=== PATIENT | female | born 1990 | race Caucasian/White ===

== ENCOUNTER 2019-09-30 17:57 | Day surgery (SDC) ==
[2019-09-30 18:33] LABS: URINE SOURCE CLEAN CATCH
[2019-09-30 18:35] LABS: BILIRUBIN URINE NEGATIVE (NEGATIVE); BLOOD URINE NEGATIVE (NEGATIVE); COLOR YELLOW; GLUCOSE URINE NEGATIVE (NEGATIVE); KETONE URINE TRACE mg/dL (NEGATIVE); LEUKOCYTES URINE NEGATIVE (NEGATIVE); NITRITE URINE NEGATIVE (NEGATIVE); PH URINE 5.5; PROTEIN URINE NEGATIVE (NEGATIVE); TURBIDITY URINE CLEAR (CLEAR); UR EPITHELIAL CELLS <10 /HPF (<10); URINE BACTERIA NEGATIVE /HPF; URINE RBC <10 /HPF (<10); URINE WBC <10 /HPF (<10); UROBILINOGEN URINE NORMAL (NORMAL)
[2019-09-30] MEDS ORDERED: NS 1,000 ML IV ONE ×2 (19:17→21:17)
[2019-09-30] MEDS ORDERED: ZOFRAN IV ONE (19:17)
[2019-09-30] MEDS ORDERED: MORPHINE IV ONE ×2 (19:17→21:17)
[2019-09-30] MEDS ORDERED: TORADOL IV ONE (19:17)
[2019-09-30 19:43] LABS: BASO# 0.02 X1000 (0.0-0.2); BASO% 0.1 % (0.0-0.8); EOS# 0.18 X1000 (0.0-0.7); EOS% 1.3 % (0.0-10.0); HEMATOCRIT 40.4 % (37.0-47.0); HEMOGLOBIN 13.6 g/dL (12.0-16.0); IMM GRAN# 0.03 X1000 (0.0-0.04); IMM GRAN% 0.2 % (0.0-0.5); LYMPH# 2.47 X1000 (1.2-3.4); LYMPH% 17.7 % (20.5-51.1); MCH 29.2 PG (27-31); MCHC 33.7 g/dL (33-37); MCV 86.9 FL (81-99); MONO# 0.63 X1000 (0.11-0.59); MONO% 4.5 % (1.7-9.3); MPV 9.8 FL (7.4-10.4); NEUT# 10.65 X1000 (1.4-6.5); NEUT% 76.2 % (42.2-75.2); PLT 321 X1000 (130-400); RBC 4.65 XMIL (4.2-5.4); RDW 11.6 % (11.5-14.5); WBC 13.98 X1000 (4.8-10.8)
[2019-09-30 20:04] LABS: AGAP 14; ALBUMIN 4.4 g/dL (3.5-5.0); ALKALINE PHOSPHATASE 64 U/L (32-104); BUN 11 mg/dL (8-22); CALCIUM 9.4 mg/dL (8.8-10.2); CHLORIDE 101 mmol/L (98-107); COSMO 277; CREATININE 0.7 mg/dL (0.5-0.9); ESTIMATED GFR > 60; GLUCOSE 91 mg/dL (70-104); GOT 13 U/L (10-30); GPT 12 U/L (10-36); LIPASE 24 U/L (13-60); POTASSIUM 3.6 mmol/L (3.5-5.1); SODIUM 139 mmol/L (136-145); TCO2 24 mmol/L (25-35); TOTAL PROTEIN 7.7 g/dL (6.3-8.3)
--- NOTE | 2019-09-30 21:11 | Diag Imaging Result Doc PS360 ---
CT ABD/PELVIS W/IV CONT ONLY - 09/30/2019 INDICATION: RLQ pain, r/o appy COMPARISON: None FINDINGS: The vermiform appendix is very enlarged measuring over 13 mm. No bowel obstruction or free air. Trace pelvic free fluid. Urinary bladder, uterus, ovaries, and rectum are normal. The liver, gallbladder, spleen, pancreas, adrenals, and kidneys are normal. The lung bases are clear and the heart size is normal. Bones are intact. IMPRESSION: Acute appendicitis. This report was discussed with Dr. Villalobos on 09/30/2019 at 9:07 PM and was readback. This exam was performed using automated exposure control, adjustment of mA or kV according to patient size, and/or use of iterative reconstruction technique Electronically signed by Óscar Wiggins 09/30/2019 9:09 PM
[2019-09-30] MEDS ORDERED: INVANZ 1 GM/NS 1 GM/50 ML IVPB IV SCH (21:15)
[2019-09-30] MEDS ORDERED: INVANZ ONE (21:17)
[2019-09-30] MEDS ORDERED: NS 50 ML ONE (21:18)
[2019-09-30] MEDS ORDERED: ZOFRAN IV PRN (21:19)
[2019-09-30] MEDS ORDERED: TORADOL IV PRN (21:19)
--- NOTE | 2019-09-30 21:19 | PROVIDER DOCUMENTATION ---
This chart was entered by Carolin Dougherty Scribe, acting as scribe for Olvin Villalobos MD. HPI-Abdominal Pain/GI Problem - General Chief Complaint: Abdominal Pain Stated Complaint: ABD PAIN Time Seen by Provider: 09/30/19 19:06 Source: RN/ Allergies/Adverse Reactions: Patient Allergies Allergy/AdvReac Type Severity Reaction Status Date / Time Penicillins AdvReac ITCHING Verified 09/30/19 18:55 Sulfa (Sulfonamide AdvReac NAUSEA Verified 09/30/19 18:55 Antibiotics) Home Medications: Home Medication List Medication Instructions Recorded Confirmed Last Taken Type Bupropion [Wellbutrin] 75 mg PO DAILY 09/30/19 09/30/19 Unknown History - History of Present Illness-ABD Nature of Presenting Problems: pt is a 29 yof c/o abd pain starting above umbilicus and radiating to lower abd starting yesterday w/associated nausea, dysuria and diaphoresis. pain is waxing and waning. worsens when eating, breathing and hitting bumps in car. pt LMP was 1-5-20. last BM was today. pt's pain is relieved by laying on left side. Abdominal Pain Onset Location: reports: other (above umbilicus) Pain Radiation: reports: RLQ, LLQ Severity in ED: reports: mild Onset/Duration: reports: other (yesterday) Timing: reports: intermittent Activities at Onset: reports: none Modifying Factors: improves with: breathing (worsens), eating (worsens), lying down (on left side improves), movement (in vheicle hitting bumps worsens) Associated Symptoms: reports: diaphoresis, genitourinary problems (dysuria), nausea Last BM: other (today) Dark Stools Present?: reports: none noticed Rectal Bleeding: reports: none Rectal Pain: reports: none Emesis Description: reports: none Similar Symptoms Previously?: No (pt sts has never had pain before ) Review of Systems - Adult - REVIEW OF SYSTEMS - ADULT Constitutional: reports: no symptoms reported. denies: fever, fatique, night sweats Eyes: reports: no symptoms reported Ears, Nose, Mouth & Throat: reports: no symptoms reported Cardiovascular: reports: no symptoms reported Respiratory: reports: no symptoms reported Gastrointestinal: reports: see HPI, abdominal pain, nausea. denies: diarrhea, rectal bleeding, vomiting Genitourinary: reports: see HPI, dysuria. denies: incontinence, urinary retention, urgency Musculoskeletal: reports: no symptoms reported Integumentary: reports: no symptoms reported Neurological: reports: no symptoms reported Psychiatric: reports: no symptoms reported Endocrine: reports: see HPI, excessive sweating. denies: change in skin pigment, goiter, polyuria Hematologic/Lymphatic: reports: no symptoms reported Allergic/Immunologic: reports: no symptoms reported All Other Systems: Reviewed and Negative Past History - Adult - PAST MEDICAL HISTORY-ADULT Review of Records: reports: Nursing Assessment Review, Medications Reviewed, Social history reviewed & non-contributory. Major Childhood Illnesses: reports: denies history Cardiovascular: reports: denies history Respiratory: reports: denies history Gastrointestinal: reports: denies history Obstetrical/Gynecological: reports: denies history Genitourinary: reports: denies history Musculoskeletal: reports: denies history Neurological: reports: denies history Endocrine/Immune: reports: denies history Other Conditions: reports: denies history - PRIOR SURGERIES/PROCEDURES Surgical/Procedure History: reports: none - IMMUNIZATION STATUS Childhood Immunizations: See Nurse Assessment Flu Vaccine: See Nurse Assessment - FAMILY HISTORY Family History: reviewed, not pertinent - SOCIAL HISTORY Smoking: cigarettes, greater than 1 pack/day, other (vapes) Provider spent 3-5 mins advising pt. on dangers of tobacco.: Discussed manners to quit use, and f/u contacts for add'l counseling. Substance Use: none/never Physical Exam-General - PHYSICAL EXAM-ADULT Initial Vital Signs Reviewed: Yes - CONSTITUTIONAL General Appearance: alert, no apparent distress. negative: lethargic, slow to respond, obtunded - EYES Eyes: PERRL/EOMI - HEAD, EARS, NOSE, MOUTH & THROAT HENMT: normocephalic/atraumatic, moist mucous membranes - NECK Neck: non-tender, full range of motion, supple, normal inspection - RESPIRATORY Respiratory: chest non-tender, lungs clear, normal breath sounds - CARDIOVASCULAR Cardiovascular: normal peripheral pulses, regular rate, rhythm - GASTROINTESTINAL (ABDOMEN) Abdominal Exam: normal bowel sounds, soft, no organomegaly, no pulsatile mass, guarding (involuntary), tenderness (bilat lower abd pain worse at mcburney's point), McBurney's point tenderness, obturator sign, Rovsing's sign. negative: non tender, abnormal bowel sounds, distended, rebound, psoas sign - MUSCULOSKELETAL Back Exam: normal inspection Extremity: normal range of motion, non-tender, normal inspection Peripheral Pulses: radial (R): 2+, radial (L): 2+ - SKIN Integumentary: normal color, normal turgor, diaphoresis. negative: warm/dry, pallor, swelling, tenderness - NEUROLOGIC Neurologic: grossly normal, no motor/sensory deficits - PSYCHIATRIC Psych/Mental Status: normal mood/affect, normal thought content, normal thought process, oriented x 3 Progress - PLAN OF CARE/RESULTS Progress/Plan/Lab Results: Vital Signs - 8 hr 09/30/19 18:19 Temperature 98 F Pulse Rate 114 H Respiratory Rate 18 Blood Pressure 155/106 O2 Sat by Pulse Oximetry 97 Bedside Urine ED: Urine Bedside Start: 09/30/19 18:24 Freq: ORDERED Status: Active Protocol: Activity Type Activity Date Activity User E-Sign Co-Sign Detail Recorded Client Recorded Date Recorded By Document 09/30/19 18:28 [id number] 09/30/19 18:28 [id number] 09/30/19 18:28 Point of Care [Bedside Point of Care] -Lot # [id number] - Results Negative -Control Line Visible? Yes Laboratory Results - last 24 hr 09/30/19 18:23 Urine Source CLEAN CATCH Urine Color YELLOW Urine Turbidity CLEAR Urine pH 5.5 Ur Specific Davison 1.020 Urine Protein NEGATIVE Ur Glucose (Stick) NEGATIVE Ur Ketones (Stick) TRACE A Urine Blood NEGATIVE Urine Nitrite NEGATIVE Urine Bilirubin NEGATIVE Urobilinogen Dipstick NORMAL Urine Leukocytes NEGATIVE Urine WBC (Auto) <10 Urine RBC (Auto) <10 U Epithel Cells (Auto) <10 Urine Bacteria (Auto) NEGATIVE Orders Category Date Time Status ED: Urine Bedside ORDERED Care 09/30/19 18:24 Active NPO Diet 09/30/19 18:56 Active CBC WITH DIFF [HEME] Stat Lab 09/30/19 18:56 Uncollected COMPREHENSIVE METABOLIC PANEL [CHEM] Stat Lab 09/30/19 18:56 Uncollected LIPASE [CHEM] Stat Lab 09/30/19 18:56 Uncollected URINALYSIS W/POSS RFLX CULT [URINALYSIS] Stat Lab 01/26/20 18:23 Completed Abd Pain/OB <20 weeks Stat Oth 09/30/19 18:56 Ordered Result Diagrams: 09/30/19 19:29 09/30/19 19:29 - REASSESSMENT Reassessment #1 Time Reassessed: 21:18 Status: improving (better with meds.) - CT/MRI 1 CT Study: Abdomen, Pelvis Impression: Abnormal, See EMR Report ( CT ABD/PELVIS W/IV CONT ONLY - 09/30/2019 INDICATION: RLQ pain, r/o appy COMPARISON: None FINDINGS: The vermiform appendix is very enlarged measuring over 13 mm. No bowel obstruction or free air. Trace pelvic free fluid. Urinary bladder, uterus, ovaries, and rectum are normal. The liver, gallbladder, spleen, pancreas, adrenals, and kidneys are normal. The lung bases are clear and the heart size is normal. Bones are intact. IMPRESSION: Acute appendicitis. This report was discussed with Dr. Villalobos on 09/30/2019 at 9:07 PM and was readback. This exam was performed using automated exposure control, adjustment of mA or kV according to patient size, and/or use of iterative reconstruction technique Electronically signed by Óscar Wiggins 09/30/2019 9:09 PM) Comparison with other Films: no prior study - CONSULTS/PCP/HOSPITALIST Notification #1 *Consult/PCP/Hospitalist*: Juanita Time Discussed: 21:13 Consult Disposition: Admit Departure - Departure Date of Disposition Decision: 09/30/19 Time of Disposition Decision: 21:18 DIAGNOSIS: Acute appendicitis Qualifiers: Acute appendicitis type: with localized peritonitis Appendicitis gangrene presence: without gangrene Appendicitis perforation presence: without perforation Appendicitis abscess presence: without abscess Qualified Code(s): K35.30 - Acute appendicitis with localized peritonitis, without perforation or gangrene Disposition: ADMITTED INPATIENT 09 Certified Medical Emergency: Emergent Condition: Stable Referrals and Follow-Ups: None,PCP [Primary Care Provider] - - Critical Care Note This patient required my direct & personal management of CC.: No Attestation - Physician/ OMERO Attestation Patient care was provided by Advanced Practice Provider:: No The physician spent face to face time with patient:: Yes Advanced Practice Provider documentation review:: Supervising physician onsite and consulted in the evaluation and care of this patient. The physician did have a face to face encounter with the patient. This chart was documented by the indicated scribe, (Carolin Dougherty, Abdi) and accurately reflects the services I performed and decisions made by me, Olvin Villalobos MD, as attested by the provider's signature.
[2019-09-30] MEDS ORDERED: FENTANYL ONE (22:03)
[2019-09-30] MEDS ORDERED: DIPRIVAN 1% ONE (22:03)
[2019-09-30] MEDS ORDERED: VERSED ONE (22:03)
[2019-09-30] MEDS ORDERED: LR 1,000 ML ONE (22:04)
[2019-09-30] MEDS ORDERED: MARCAINE 0.25% ONE (22:04)
[2019-10-01] MEDS: MORPHINE IV PRN ×2 (00:51→02:55)
--- NOTE | 2019-10-01 01:40 | HISTORY AND PHYSICAL ---
HISTORY OF PRESENT ILLNESS: Ms Marie West is a 29-year-old white female who has a 12 to 24 hour history of abdominal pain which became worse today and has localized toward the right lower quadrant. She presented to [facility] emergency department and was evaluated including a CT scan of her abdomen and pelvis which suggested acute appendicitis as did her exam, and she was transferred to [facility] for surgical care. PAST MEDICAL HISTORY: None. MEDICATIONS: Wellbutrin. ALLERGIES: Sulfa and penicillin. SOCIAL HISTORY: She smokes a pack of cigarettes a day and vapes. Evidently she gets some of her care at the [facility]. She has recently moved to this area. REVIEW OF SYSTEMS: A 14-point review of systems was performed. Her last menstrual period was on 09/09/2019, otherwise it was negative. FAMILY HISTORY: Was reviewed with the patient and was noncontributory. PHYSICAL EXAMINATION: GENERAL: Ms. West is a young white female in no acute distress. She is 5 feet 6 inches, 160 pounds. VITAL SIGNS: Heart rate is 71, blood pressure is 121/83, O2 saturation is 98%. She is afebrile. HEENT: She has no jaundice. No oral lesions. Satisfactory dentition. NECK: No cervical or supraclavicular lymphadenopathy. HEART: Has a regular rate. LUNGS: Clear to auscultation and percussion bilaterally. ABDOMEN: Soft. It is tender in the right lower quadrant. There is no previous scars. No evidence of hernia. No costovertebral tenderness. RECTAL: Rectal exam not performed. GYNECOLOGIC: Vaginal exam was not performed. EXTREMITIES: She does have palpable peripheral pulses. No peripheral edema. NEUROLOGICAL: She is alert and oriented x3 and appropriate. No focal deficits. LABORATORY DATA: Her white blood cell count is 14, hematocrit is 40%. Electrolytes are within normal limits. CT scan was reviewed and suggested acute appendicitis. IMPRESSION: Acute appendicitis. PLAN: Laparoscopic possible open appendectomy this evening. I have discussed the procedure in detail with the patient while she was in our holding area including its risks of bleeding, infection, removal of a normal appendix, conversion of laparoscopic to open appendectomy, leakage from the appendiceal stump requiring reoperation for infection, injury to intra-abdominal contents for trocar placement. She understands the need for surgery and its risks and she wants to proceed. cc: Shefali Grant MD
[2019-10-01] MEDS ORDERED: TYLENOL PO PRN (01:51)
[2019-10-01] MEDS ORDERED: MORPHINE IV PRN (01:53)
[2019-10-01] MEDS ORDERED: PHENERGAN IV PRN (01:53)
[2019-10-01] MEDS ORDERED: SODIUM CHLORIDE 0.9% INJ PRN (01:53)
[2019-10-01] MEDS ORDERED: LR 1,000 ML IV SCH (02:00)
--- NOTE | 2019-10-01 03:15 | OPERATIVE NOTE ---
PROCEDURE DATE: 09/30/2019 PREOPERATIVE DIAGNOSIS: Acute appendicitis. POSTOPERATIVE DIAGNOSIS: Acute appendicitis. PRINCIPAL PROCEDURE: Laparoscopic appendectomy. SURGEON: Shefali Grant MD. ANESTHESIA: General in addition to local anesthetic. ESTIMATED BLOOD LOSS: 30 mL. DRAINS: None. INDICATIONS: Marie West is a 29-year-old white female who presented to [facility] today with a 12 to 24 hour history of abdominal pain localizing to her right lower quadrant. Part of her evaluation was a CT scan of her abdomen which suggested acute appendicitis as did her exam. She was transferred to [facility] for surgical care. FINDINGS: Her appendix was acutely inflamed without evidence of rupture, no other intra-abdominal pathology was noted, and we felt we did the operation safely. DESCRIPTION OF PROCEDURE: The patient was brought to the operating room, placed supine, received general anesthesia, and was intubated. A Patel catheter tube was placed. Her abdomen was prepped and draped in a sterile field. She already received IV Invanz. I began the procedure by making a small incision at the umbilicus. A Veress needle was introduced through this incision. Pneumoperitoneum was established, and I used step trocars. I placed an 11 mm step trocar through this incision into the abdomen. The camera was placed through this port, and the abdomen was explored for injury, there was none. Two other trocars were placed under direct vision of the camera. I placed a 12 mm step trocar through a small transverse incision in the suprapubic area midline, and then one in the right lower quadrant, this was a 5 mm step trocar. The cameras at the umbilical port. I used a forceps with teeth and a dissector to dissect out the appendix. I used a gold load 30 mm in length Endo SARAHY to come across the appendiceal mesentery, and then I used a reload of this stapler to come across the base of the appendix. I used an endobag to remove the appendix through our 12 mm port site. I placed the trocar back through this incision and the area of operation was thoroughly inspected, irrigated and the irrigation was removed with suction. There was no evidence of ongoing bleeding. We were happy with the appendiceal stump. No drains were left. The Patel catheter tube will be removed at the end of the procedure. She will go the recovery room and then be admitted to the floor overnight. cc: Shefali Grant MD
[2019-10-01] MEDS ORDERED: TYLENOL PO SCH (04:15)
[2019-10-01] MEDS: NORCO-10 PO PRN ×2 (05:13→10:20)
[2019-10-01] MEDS ORDERED: PERIDEX MT SCH (09:00)
[2019-10-01 11:21] VITALS: BP 110/70
--- NOTE | 2019-10-01 22:22 | DISCHARGE SUMMARY ---
ADMISSION DATE: 09/30/2019 DISCHARGE DATE: 10/01/2019 ADMITTING DIAGNOSIS: Acute appendicitis. DISCHARGE DIAGNOSIS: Acute appendicitis without rupture. PRINCIPAL PROCEDURE: Laparoscopic appendectomy on 09/30/2019. DISCHARGE DISABILITY: Full. DISCHARGE DISPOSITION: She will return to our outpatient office in 7 to 10 days for followup. DISCHARGE MEDICATIONS: She is to return to her home medications. DISCHARGE DIET: Regular. HOSPITAL COURSE: Marie West is a 29-year-old, white female who presented to [facility] emergency department with a 12 to 24 hour history of abdominal pain which had localized to her right lower quadrant. A CT scan of her abdomen also suggested acute appendicitis. She was transferred from [place] to [facility] and last night underwent a laparoscopic appendectomy for acute appendicitis without rupture. We felt that the operation went well. We did not leave any drains. After surgery she went to the recovery room and then to the [address] [place] [address] [place]. On the morning of postoperative day 1, she was tolerating liquids. She was able to ambulate well in her room. Her trocar sites were healing well and it was felt safe to discharge her home under the care of her family with followup in my outpatient office in 7 to 10 days. She knows to contact us with any increasing abdominal pain, fever, nausea and vomiting. cc: Shefali Grant MD
== END 2019-10-01 10:33 | disposition home or self-care (01) ==
LOC: P.ED 17:57 → SURHOLD 17:57 → OPS 21:42 → 4N 10-01 02:34 → OPS 10-01 10:33
PROVIDERS: ATTEND Surgery